=== PATIENT | male | born 1980 | race African-American/Black ===

== ENCOUNTER 2016-08-14 07:21 | Emergency (ER) | payer OTHER ==
[~2016-08-14] VITALS: Ht 180.3 cm; Wt 80.0 kg
[~2016-08-14 07:21] MED LIST: ZOFR4TAB3 SL
[2016-08-14 07:25] VITALS: BP 159/77; PULSE 64; RESP 15; TEMP 98.2; O2SAT 98
[2016-08-14 07:34] VITALS: BP 143/83; PULSE 61; RESP 14; O2SAT 100
[2016-08-14] MEDS ORDERED: SODIUM CHLORIDE 0.9% FLUSH 5 ML FLUSH IVF PRN (07:45)
[2016-08-14] MEDS ORDERED: SODIUM CHLORID 0.9% 500 ML INJ 500 ML IV ONE (07:45)
[2016-08-14] MEDS ORDERED: NITROGLYCERIN 0.4 MG SL 25 TABS/BTL SL ONE (07:45)
[2016-08-14 07:47] VITALS: BP_SYST 143; BP_SYST 159; BP_DIAS 77; BP_DIAS 83
[2016-08-14 07:48] VITALS: O2SAT 99
[2016-08-14 07:51] LABS: AUTOMATED NEUTROPHIL # 1.9 TH/MM3 (1.8-7.7); BASOPHIL % 0.8 % (0.0-2.0); EOSINOPHIL # 0.1 TH/MM3 (0-0.4); EOSINOPHIL % 1.5 % (0.0-4.0); HEMATOCRIT 45.8 % (39.0-51.0); HEMO FLAGS DIFF FINAL; LYMPH % 51.6 % (9.0-44.0); LYMPHOCYTE # 2.6 TH/MM3 (1.0-4.8); MEAN CELL VOLUME 85.7 FL (80.0-100.0); MEAN CORPUSCULAR HEMOGLOBIN 29.4 PG (27.0-34.0); MEAN CORPUSCULAR HGB CONC 34.3 % (32.0-36.0); MONO % 9.6 % (0.0-8.0); NEUT % 36.5 % (16.0-70.0); PLATELET COUNT 297 TH/MM3 (150-450); RED BLOOD COUNT 5.34 MIL/MM3 (4.50-5.90); RED CELL DISTRIBUTION WIDTH 14.1 % (11.6-17.2); WHITE BLOOD COUNT 5.1 TH/MM3 (4.0-11.0)
--- NOTE | 2016-08-14 07:58 | RADRPT ---
EXAM DATE/TIME: 08/14/2016 07:47 [facility] COMPARISON: No previous studies available for comparison. INDICATIONS : Chest pain. MEDICAL HISTORY : None. SURGICAL HISTORY : None. ENCOUNTER: Initial ACUITY: 4 - 6 days PAIN SCORE: 8/10 LOCATION: Bilateral chest FINDINGS: Portable AP view of the chest demonstrates a normal-sized cardiac silhouette. No effusion, consolidat ion, or pneumothorax is visualized. The bones and soft tissues demonstrate no acute abnormality. EKG lines overlie the patient. CONCLUSION: No acute cardiopulmonary abnormality is identified. John Winn MD on August 14, 2016 at 7:56 Board Certified Radiologist. This report was verified electronically.
[2016-08-14 08:10] LABS: ALKALINE PHOSPHATASE 74 U/L (45-117); ALT (GPT) 41 U/L (12-78); ANION GAP 7 MEQ/L (5-15); AST (GOT) 20 U/L (15-37); BICARBONATE 28.1 MEQ/L (21.0-32.0); BLOOD UREA NITROGEN 6 MG/DL (7-18); CHLORIDE 106 MEQ/L (98-107); CREATINE KINASE 255 U/L (39-308); GLOMERULAR FILTRATION RATE 102 ML/MIN (>89); MAGNESIUM 2.1 MG/DL (1.5-2.5); POTASSIUM 3.8 MEQ/L (3.5-5.1); SODIUM (NA) 141 MEQ/L (136-145); TOTAL BILIRUBIN ADULT 0.4 MG/DL (0.2-1.0)
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
[2016-08-14 08:17] LABS: APTT (PATIENT) 28.4 SEC (24.3-30.1); PROTHROMBIN TIME - PATIENT 11.6 SEC (9.8-11.6)
[2016-08-14 08:22] LABS: CKMB 1.3 NG/ML (0.5-3.6)
[2016-08-14 09:22] VITALS: BP 117/75; PULSE 62; RESP 16; O2SAT 100
[2016-08-14] MEDS ORDERED: KETOROLAC TROMETHAMINE 30 MG/ML (IVP) VIAL IV PUSH ONE (10:30)
[2016-08-14 10:47] LABS: AMPHETAMINE, URINE NEG (NEG); BARBITURATES, URINE NEG (NEG); COCAINE, URINE NEG (NEG)
[2016-08-14 10:58] VITALS: BP 121/78
--- NOTE | 2016-08-14 23:15 | EKG ---
Date Performed: 08/14/2016 Time Performed: 07:36:53 PTAGE: 35 years EKG: Sinus rhythm WITH SINUS ARRHYTHMIA MINIMAL VOLTAGE CRITERIA FOR LVH, CONSIDER NORMAL VARIANT BORDERLINE ECG NO PREVIOUS TRACING DOCTOR: Jean Paul Ruiz Interpretating Date/Time 08/14/2016 23:15:12
== END 2016-08-14 10:59 | disposition home or self-care (01) ==
LOC: NEPC 07:21
DX: R07.9 Chest pain, unspecified (principal); I49.8 Other specified cardiac arrhythmias
CPT/HCPCS: 71010; 80053; 80307; 82550; 82552; 83735; 84484; 85025; 85379; 85610; 85730; 93005; 96361; 96374; 99285; J1885; J7040

== ENCOUNTER 2017-03-01 20:31 | Emergency (ER) | payer OTHER ==
[~2017-03-01] VITALS: Ht 180.3 cm; Wt 84.0 kg
[2017-03-01 20:33] VITALS: BP 133/66; PULSE 80; RESP 16; TEMP 97.9; O2SAT 100
--- NOTE | 2017-03-01 20:41 | PD ---
Physical Exam Date Seen by Provider: Mar 01, 2017 Time Seen by Provider: 20:40 Narrative 36 yo male here for left rib pain. Has had this since today. States he overeached trying to get an emergency parking break. Pain is 8/10. No injury otherwise. No SOB. Hurts to move. Vitals are stable in triage. Awaiting Bed placement. Data Data Last Documented VS Vital Signs Date Time Temp Pulse Resp B/P Pulse Ox O2 Delivery O2 Flow Rate FiO2 03/01/17 20:33 97.9 80 16 133/66 100 Room Air [facility] Medical Record Reviewed: Yes Supervised Visit with BRIANNE: No Scripts No Active Prescriptions or Reported Meds Dennis Isaac Mar 01, 2017 20:41
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
[2017-03-01] MEDS ORDERED: DICL75TA PO (21:20)
[2017-03-01] MEDS ORDERED: CYCL1TAB29 PO (21:20)
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
[2017-03-01] MEDS ORDERED: ACETAMINOPHEN/HYDROcodone 325 MG/5 MG TAB PO ONE (21:30)
[2017-03-01] MEDS ORDERED: NAPROXEN 500 MG TAB PO ONE (21:30)
== END 2017-03-01 21:41 | disposition home or self-care (01) ==
LOC: NEPK 20:31
DX: S20.212A Contusion of left front wall of thorax, initial encounter (principal); X58.XXXA Exposure to other specified factors, initial encounter; Z72.0 Tobacco use
CPT/HCPCS: 71101; 99284

== ENCOUNTER 2017-03-10 07:34 | Emergency (ER) | payer OTHER ==
[~2017-03-10] VITALS: Ht 180.3 cm; Wt 82.0 kg
[~2017-03-10 07:34] MED LIST changes: +CYCL1TAB29 PO; +DICL75TA PO; -ZOFR4TAB3 SL
[2017-03-10 07:36] VITALS: BP 127/74; PULSE 64; RESP 15; TEMP 98; O2SAT 100
--- NOTE | 2017-03-10 07:57 | PD ---
HPI Chief Complaint: Pain: Acute or Chronic Time Seen by Provider: 07:51 Travel History International Travel<30 days: No Contact w/Intl Traveler<30days: No Traveled to known affect area: No History of Present Illness HPI 36-year-old male presents emergency department requesting continued work release. He was seen on March 01 and diagnosed with contusion of his left chest wall. 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 He denies shortness of breath, hemoptysis. Pain is aggravated with lifting, turning, movement. Symptoms are mild in severity. No known allergies. Has no medical complaints. No other modifying factors or associated signs and symptoms. History Past Medical Histgory Medical History: Denies Significant Hx Tetanus Vaccination: Unknown Social History Alcohol Use: No Tobacco Use: Yes ([employer]ACK[employer]MILDS 1PACK/WEEK) Allergies-Medications (Allergen,Severity, Reaction): Coded Allergies: No Known Allergies (Unverified , 03/10/17) Reported Meds & Prescriptions Reported Meds & Active Scripts Active No Active Prescriptions or Reported Medications Review of Systems Except as stated in HPI: all other systems reviewed are Neg Physical Exam Narrative GENERAL: Well-nourished, well-developed male patient, in no acute distress SKIN: Warm and dry. HEAD: Atraumatic. Normocephalic. EYES: Pupils equal and round. No scleral icterus. No injection or drainage. ENT: Mucosa pink and moist. NECK: Trachea midline. CHEST: Left lateral rib cage with reproducible tenderness on palpation; no crepitance or deformity. No retractions or use of accessory muscles. CARDIOVASCULAR: Regular rate and rhythm. No murmur appreciated. RESPIRATORY: No accessory muscle use. Clear to auscultation. Breath sounds equal bilaterally. No retractions or tachypnea. GASTROINTESTINAL: Flat. MUSCULOSKELETAL: No obvious deformities. No clubbing. No cyanosis. No edema. NEUROLOGICAL: Awake and alert. Oriented 3. No obvious cranial nerve deficits. Motor grossly within normal limits. Normal speech. Moves all extremities. 5/5 strength to all extremities. PSYCHIATRIC: Appropriate mood and affect; insight and judgment normal. Data Data Last Documented VS Vital Signs Date Time Temp Pulse Resp B/P Pulse Ox O2 Delivery O2 Flow Rate FiO2 03/10/17 07:42 18 03/10/17 07:36 98.0 64 127/74 100 MDM Medical Screen Exam Complete: Yes Emergency Medical Condition: No Differential Diagnosis Left lateral chest wall muscle strain Narrative Course 36-year-old male requesting continued work release after being seen on March 01 for left-sided chest wall contusion. Vital signs are stable and the patient is stable for outpatient follow-up and treatment. The patient has no urgent or emergent medical complaints. There is no emergent or urgent medical need at this time. I instructed the patient to follow up with their primary care provider. A medical screening exam was performed: At the time of evaluation the presenting medical condition was determined not to be of an emergent nature. The patient was given the option of receiving additional care, but declined. Patient was given options for additional community resources from which to obtain care. The Patient Has Been advised to seek medical attention for their presenting complaint. The patient has been advised to return to the ER at any time if an emergent condition develops. Primary Impression: Encounter for medical screening examination Scripts No Active Prescriptions or Reported Meds Condition: Stable Yodit Ibanez Mar 10, 2017 07:56
== END 2017-03-10 07:50 | disposition left against medical advice (07) ==
LOC: NEPD 07:34
DX: Z04.8 Encounter for examination and observation for other specified reasons (principal)
CPT/HCPCS: 99281

== ENCOUNTER 2017-05-18 07:16 | Emergency (ER) | payer OTHER ==
[~2017-05-18] VITALS: Ht 180.3 cm; Wt 86.0 kg
[2017-05-18 07:18] VITALS: BP 135/76; PULSE 77; RESP 14; TEMP 99; O2SAT 100
[2017-05-18 07:31] VITALS: BP 129/57; PULSE 72; RESP 16; TEMP 98; O2SAT 100
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
[2017-05-18] MEDS ORDERED: ONDANSETRON HCL 4 MG/2 ML VIAL IV PUSH ONE ×2 (07:45)
[2017-05-18] MEDS ORDERED: SODIUM CHLOR 0.9% 1000 ML INJ 1,000 ML IV ONE ×2 (07:45)
[2017-05-18] MEDS ORDERED: DICYCLOMINE HCL 20 MG/2 ML VIAL IM ONE ×2 (07:45)
[2017-05-18] MEDS ORDERED: ZOFR4TAB PO ×2 (11:04)
[2017-05-18 11:46] VITALS: BP 130/58
== END 2017-05-18 11:49 | disposition home or self-care (01) ==
LOC: NEPE 07:16
DX: R11.2 Nausea with vomiting, unspecified (principal); R19.7 Diarrhea, unspecified; F17.210 Nicotine dependence, cigarettes, uncomplicated
CPT/HCPCS: 96361; 96372; 96374; 99284; J0500; J2405; J7030

== ENCOUNTER 2017-11-17 17:11 | Emergency (ER) | payer OTHER ==
[~2017-11-17 17:11] MED LIST changes: -CYCL1TAB29 PO; -DICL75TA PO; +ZOFR4TAB PO
[2017-11-17 17:45] VITALS: BP 144/64; PULSE 71; RESP 18; TEMP 98.6; O2SAT 98
== END 2017-11-17 18:20 | disposition left against medical advice (07) ==
LOC: NED 17:11
DX: S80.869A Insect bite (nonvenomous), unspecified lower leg, initial encounter (principal); W57.XXXA Bitten or stung by nonvenomous insect and other nonvenomous arthropods, initial encounter
CPT/HCPCS: 99281